=== PATIENT | male | born 1955 | race Two or more races ===

== ENCOUNTER 2019-11-12 07:01 | Outpatient (CLI) | payer OTHER | END 2019-11-12 07:10 | disposition home or self-care (01) | LOC: LAB 07:01 | PROVIDERS: ATTEND Internal Medicine Hematology & Oncology | DX: D50.8 Other iron deficiency anemias (principal); I10 Essential (primary) hypertension; B20 Human immunodeficiency virus [HIV] disease; B17.8 Other specified acute viral hepatitis; R97.0 Elevated carcinoembryonic antigen [CEA]; R97.8 Other abnormal tumor markers; Z11.59 Encounter for screening for other viral diseases; E03.8 Other specified hypothyroidism; D72.818 Other decreased white blood cell count; E11.9 Type 2 diabetes mellitus without complications ==

== ENCOUNTER 2019-12-04 07:09 | Outpatient (CLI) | payer OTHER | END 2019-12-04 09:31 | disposition home or self-care (01) | LOC: NUCLEAR 07:09 | PROVIDERS: ATTEND Internal Medicine Cardiovascular Disease | DX: R07.89 Other chest pain (principal); I25.10 Atherosclerotic heart disease of native coronary artery without angina pectoris | CPT/HCPCS: 78452; 93017; A9500 ==

== ENCOUNTER 2020-01-03 07:19 | Outpatient (CLI) | payer OTHER | END 2020-01-03 07:22 | disposition home or self-care (01) | LOC: LAB 07:19 | PROVIDERS: ATTEND Internal Medicine Geriatric Medicine | DX: D50.8 Other iron deficiency anemias (principal); E03.8 Other specified hypothyroidism; E78.2 Mixed hyperlipidemia; I11.9 Hypertensive heart disease without heart failure; E56.8 Deficiency of other vitamins; N39.0 Urinary tract infection, site not specified; Z12.11 Encounter for screening for malignant neoplasm of colon; E55.9 Vitamin D deficiency, unspecified; N19 Unspecified kidney failure; E11.9 Type 2 diabetes mellitus without complications; R80.8 Other proteinuria; C18.0 Malignant neoplasm of cecum; K92.1 Melena; D51.1 Vitamin B12 deficiency anemia due to selective vitamin B12 malabsorption with proteinuria; D51.0 Vitamin B12 deficiency anemia due to intrinsic factor deficiency; E06.3 Autoimmune thyroiditis; R97.0 Elevated carcinoembryonic antigen [CEA]; R97.8 Other abnormal tumor markers; D72.818 Other decreased white blood cell count; D69.49 Other primary thrombocytopenia ==

== ENCOUNTER 2020-01-04 10:43 | Outpatient (CLI) | payer OTHER | END 2020-01-04 10:50 | disposition home or self-care (01) | LOC: LAB 10:43 | PROVIDERS: ATTEND Urology | DX: D50.8 Other iron deficiency anemias (principal); E03.8 Other specified hypothyroidism; E78.2 Mixed hyperlipidemia; E11.9 Type 2 diabetes mellitus without complications; E56.8 Deficiency of other vitamins; N39.0 Urinary tract infection, site not specified; Z12.11 Encounter for screening for malignant neoplasm of colon; E55.9 Vitamin D deficiency, unspecified; N19 Unspecified kidney failure; R80.8 Other proteinuria; C18.0 Malignant neoplasm of cecum; K92.1 Melena; R97.21 Rising PSA following treatment for malignant neoplasm of prostate ==

== ENCOUNTER 2020-01-23 15:11 | Outpatient (CLI) | payer OTHER | END 2020-01-23 15:16 | disposition home or self-care (01) | LOC: LAB 15:11 | PROVIDERS: ATTEND Radiology Diagnostic Radiology | DX: N20.0 Calculus of kidney (principal) ==

== ENCOUNTER 2020-01-31 07:16 | Outpatient (CLI) | payer OTHER | END 2020-01-31 07:27 | disposition home or self-care (01) | LOC: TOM 07:16 | PROVIDERS: ATTEND Internal Medicine Hematology & Oncology | DX: K57.90 Diverticulosis of intestine, part unspecified, without perforation or abscess without bleeding (principal); R97.0 Elevated carcinoembryonic antigen [CEA]; D72.818 Other decreased white blood cell count; D51.3 Other dietary vitamin B12 deficiency anemia; D69.6 Thrombocytopenia, unspecified; E11.9 Type 2 diabetes mellitus without complications | CPT/HCPCS: 71260; 74177; Q9965 ==

== ENCOUNTER 2020-02-01 12:39 | Outpatient (CLI) | payer OTHER | END 2020-02-01 12:42 | disposition home or self-care (01) | LOC: LAB 12:39 | PROVIDERS: ATTEND Internal Medicine Hematology & Oncology | DX: R97.0 Elevated carcinoembryonic antigen [CEA] (principal); R97.8 Other abnormal tumor markers ==

== ENCOUNTER 2021-12-22 07:40 | Outpatient (CLI) | payer OTHER | END 2021-12-22 07:49 | disposition home or self-care (01) | LOC: NUCLEAR 07:40 | PROVIDERS: ATTEND Internal Medicine Cardiovascular Disease | DX: I25.10 Atherosclerotic heart disease of native coronary artery without angina pectoris (principal) ==